=== PATIENT | female | born 1995 | race Caucasian/White ===

== ENCOUNTER 2018-01-25 17:12 | Emergency (ER) | payer OTHER ==
[~2018-01-25] VITALS: Ht 180.3 cm; Wt 72.7 kg
[~2018-01-25 17:12] MED LIST: ZYRTEC 10MG10 MG PO
[2018-01-25 17:16] VITALS: BP 138/76; PULSE 87; TEMP 98.3
[2018-01-25] MEDS ORDERED: FLONASE NASAL S16 GM NS (17:19)
[2018-01-25] MEDS ORDERED: LEXAPRO 10MG10 MG PO (17:19)
== END 2018-01-25 18:34 | disposition home or self-care (01) ==
LOC: COL.ER 17:12
DX: S61.217A Laceration without foreign body of left little finger without damage to nail, initial encounter (principal); F32.9 Major depressive disorder, single episode, unspecified; Z23 Encounter for immunization; W25.XXXA Contact with sharp glass, initial encounter; Y92.009 Unspecified place in unspecified non-institutional (private) residence as the place of occurrence of the external cause

== ENCOUNTER 2021-04-02 01:51 | Emergency (ER) | payer OTHER ==
[~2021-04-02] VITALS: Ht 180.3 cm; Wt 86.4 kg
[~2021-04-02 01:51] MED LIST changes: +FLONASE NASAL S16 GM NS; +LEXAPRO 10MG10 MG PO
[2021-04-02 03:21] VITALS: BP 119/89; PULSE 78; TEMP 96.8
== END 2021-04-02 03:26 | disposition home or self-care (01) ==
LOC: COL.ER 01:51
DX: F12.10 Cannabis abuse, uncomplicated (principal)